=== PATIENT | male | born 1950 | race Caucasian/White ===

== ENCOUNTER 2024-11-03 05:33 | Day surgery (SDC) | payer MEDICARE ==
[2024-10-30 12:23] LABS: BASOPHILS % (AUTO) 0.7 % (0-1); EOSINOPHILS # (AUTO) 0.1 X10'3 (0-0.9); EOSINOPHILS % (AUTO) 0.9 % (0-6); LYMPHOCYTES # (AUTO) 2.1 X10'3 (1.1-4.8); LYMPHOCYTES % (AUTO) 30.6 % (21-51); MEAN CORPUSCULAR HEMOGLOBIN 28.1 PG (27.0-31.0); MEAN CORPUSCULAR VOLUME 85.2 FL (78-98); MONOCYTES # (AUTO) 1.9 X10'3 (0-0.9); MONOCYTES % (AUTO) 28.8 % (2-12); NEUTROPHILS # (AUTO) 2.6 X10'3 (1.8-7.7); PRE OP HEMATOCRIT 42.4 % (42.0-52.0); PRE OP PLATELET COUNT 117 X10'3 (140-440); PRE OP WHITE BLOOD COUNT 6.8 10'3 (4.8-10.8); RED BLOOD COUNT 4.97 X10'6 (4.70-6.10); RED CELL DISTRIBUTION WIDTH 14.7 % (11.5-14.5)
[2024-10-30 12:38] LABS: ALBUMIN 3.4 G/DL (3.4-5.0); ALBUMIN/GLOBULIN RATIO 1.1 (1.1-1.5); ALKALINE PHOSPHATASE 63 IU/L (46-116); BLOOD UREA NITROGEN 9 MG/DL (7-18); BUN/CREATININE RATIO 8.7 (10.0-20.0); CALCIUM 9.1 MG/DL (8.5-10.1); CHLORIDE 106 MMOL/L (99-107); CREATININE 1.04 MG/DL (0.60-1.10); PRE OP ALT 26 U/L (30-65); PRE OP ANION GAP 11 (8-16); PRE OP AST 25 U/L (10-37); PRE OP BILIRUB, TOTAL 0.5 MG/DL (0.0-1.0); PRE OP GLUCOSE 133 MG/DL (70-104); PRE OP POTASSIUM 3.8 MMOL/L (3.4-5.1); PRE OP SODIUM 146 MMOL/L (135-145); TOTAL CARBON DIOXIDE 29.4 MMOL/L (24-32); TOTAL PROTEIN 6.6 G/DL (6.4-8.2); eGFR 70 ML/MIN
[2024-10-30 12:50] LABS: PLATELET ESTIMATE DECREASED; TOTAL CELLS COUNTED 100
--- NOTE | 2024-10-30 14:35 | ELECTROCARDIOGRAPH REPORT ---
[facility] Test Date: 2024-10-30 Test Time: 12:45:59 Pat Name: GABY ELMORE Department: [facility]-PRE-OP Patient ID: [id number] Room: Gender: M Game Technician: AGNIESZKA : 1950 Requested By: LEFTY RIVERA Order Number: [id number] Reading MD: Dr. Divina Tapia Measurements Intervals [place] Rate: 68 P: 66 HI: 163 QRS: 26 QRSD: 107 T: 53 QT: 381 QTc: 406 Interpretive Statements Sinus rhythm Electronically Signed On 11-02-2024 19:05:[address] Divina Tapia Please click the below link to view image of tracing.
[~2024-11-03] VITALS: Ht 190.5 cm; Wt 87.5 kg
[2024-11-03] VITALS (9 sets, daily range): BP systolic 116–145; BP diastolic 44–91; PULSE 61–71; RESP 10–16; TEMP 98; O2SAT 65–99
[~2024-11-03 05:33] MED LIST: ALLO100T49 PO; AMLO5TAB PO; BUPR-557 PO; CLOP75TA33 PO; ERGO500041 PO; FAMO20TA8 PO; FENO145T26 PO; FINA5TAB11 PO; GABA300C PO; HYDR-3972 PO; MELO-100 PO; MIRT-142 PO; ROPI4TAB22 PO; TAMS-55 PO; TEST200V33 IM; TIZA4TAB11 PO; TRAZ-256 PO; VENL100T4 PO
[2024-11-03] MEDS: ceFAZolin 2gm/dext,iso 50mL 50 ML IV ONE (05:51)
[2024-11-03] MEDS: famotidine 20mg tablet PO ONE (05:58)
[2024-11-03] MEDS: ringers solution, lactated 500 ML IV SCH (06:02)
[2024-11-03] MEDS ORDERED: BUPIVAcaine 2.5mg/ml inj 50ml vial (contains preservative) ONE (06:54)
[2024-11-03] MEDS ORDERED: fentaNYL/PF 50MCG/1 ML 2ML syringe ONE (07:47)
[2024-11-03] MEDS ORDERED: proCHLORperazine 10 MG/2 ml inj IV PRN (07:55)
[2024-11-03] MEDS ORDERED: ringers solution, lacted 1,000 ML IV SCH (07:55)
[2024-11-03] MEDS ORDERED: meperidine/PF 25mg/ml syringe IV PRN (07:55)
[2024-11-03] MEDS ORDERED: acetaminophen 1,000mg/100ml IV 100 ML IV PRN (07:55)
[2024-11-03] MEDS ORDERED: labetalol 20mg/4ml (5mg/ml) syringe IV PRN (07:55)
[2024-11-03] MEDS ORDERED: HYDROmorphone/PF 0.2 MG/ML SYRINGE IV PRN (07:55)
[2024-11-03] MEDS ORDERED: hydrALAZINE 20mg/ml inj. IV PRN (07:55)
[2024-11-03] MEDS ORDERED: ondansetron/PF 4mg/2ml inj IV PRN (07:55)
[2024-11-03] MEDS ORDERED: morphine 2 MG/ML inj. syringe IV PRN (07:55)
[2024-11-03] MEDS ORDERED: propofol inj 20 ML IV ONE ×2 (08:04)
[2024-11-03] MEDS ORDERED: LIDOcaine 0.5% (5mg/ml) 50ml vial ONE (08:04)
[2024-11-03] MEDS ORDERED: midazolam 1 mg/ML 2ml injection ONE (08:04)
[2024-11-03] MEDS: BUPIVAcaine/PF 2.5 mg/ml (0.25%) 30ml vial IJ ONE (08:21)
[2024-11-03] MEDS: morphine 4 MG/ML inj SYRINge IV PRN (09:11)
[2024-11-03] MEDS: HYDROmorphone/PF 0.2 MG/ML SYRINGE IV PRN (09:19)
--- NOTE | 2024-11-03 11:50 | OPERATIVE REPORT ---
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 X-rays revealed an old scaphoid fracture width collapse and carpal shifting. He had radio scaphoid and lunocapitate arthritic changes. Surgery is indicated to improve function relieve pain and prevent further wrist destr uction. Risks and benefits were discussed with the patient. Some of the risks particular to this type of procedure include but are not limited to infection, bleeding, nonunion, hardware pain and impingement and incomplete relief of symptoms. He agreed to proceed. Brought to the operating room where the block was given along with the antibiotics. The arm was prepped and draped in usual manner with the tourniquet up high. The incision was made dorsally over the wrist and interval was made between 3rd and 4th extensor compartments. Capsular incision was made in the carpal bones were encountered. The remnants of the scaphoid were excised with a rongeur. The articular surface. In the lunate capitate triquetrum and hamate was then removed using the motorized bur and a rongeur. K-wires were used to positioned in lunate and capitate properly and they were pinned this get togethe r. The Reamer was then used at the four corners to create a depression for placement of the plate. This was done under fluoro guidance. The plate was then placed in seven screws were placed an awl for the carpal bones after packing the area with bone putty. Once this is done final fluoro images were obtained and printed. The incision was then closed in layers. Marcaine was th en injected in a sterile dressing was applied along with a splint. The tourniquet was released the hand perfused well. The patient was awakened and taken to the recovery room in stable condition. THOR KING Jr., MD Nov 03, 2024 11:50
== END 2024-11-03 10:06 | disposition home or self-care (01) ==
LOC: PAS 05:33
PROVIDERS: ATTEND Orthopaedic Surgery Hand Surgery
DX: S62.025K Nondisplaced fracture of middle third of navicular [scaphoid] bone of left wrist, subsequent encounter for fracture with nonunion (principal); M19.042 Primary osteoarthritis, left hand; F32.A Depression, unspecified; F41.9 Anxiety disorder, unspecified; I10 Essential (primary) hypertension; Z79.899 Other long term (current) drug therapy; Z98.890 Other specified postprocedural states; Z88.0 Allergy status to penicillin; F90.8 Attention-deficit hyperactivity disorder, other type; Z72.89 Other problems related to lifestyle
CPT/HCPCS: 25820; 36415; 80053; 82948; 85025; 93005; A4618; A6449; A7000; C1713; J1171; J2003; J2250; J2270; J2704; J3010; J3490; J7030; J7120; Z7506; Z7508; Z7512; Z7610; 85007